=== PATIENT | male | born 1960 | race African-American/Black ===

== ENCOUNTER 2018-08-04 11:00 | Day surgery (SDC) | payer OTHER ==
[2018-08-02 13:01] VITALS: BMI 28.1
[2018-08-04] MEDS ORDERED: LIDOCAINE HCL/PF 2% SDV 5ML VIAL ONE (11:57)
[2018-08-04] MEDS ORDERED: PROPOFOL 20 ML ONE (11:57)
[2018-08-04 15:47] VITALS: TEMP 97.7
[2018-08-04 15:49] VITALS: PULSE 77
[2018-08-04 15:54] VITALS: BP 146/93
--- NOTE | 2018-08-06 12:30 | PATH ---
Surgical Pathology Report Patient Name: ИВАН CONSTANTINO [facility]. Rec. #: [id number] /Age/Gender: 1960 (Age: 58) / M Account: [id number] Location: [facility] Taken: 08/04/2018 Received: 08/04/2018 Reported: 08/06/2018 Physicians: Carmen Garcia M.D. Specimen(s) Received A: SECOND PORTION DUODENUM B: ANTRUM C: BODY D: GE JUNCTION Clinical History History of ulcers Postoperative diagnosis: Gastritis Final Diagnosis A. SECOND PORTION OF DUODENUM, BIOPSY: DUODENAL MUCOSA WITH NO PATHOLOGIC FINDINGS. B. ANTRUM, BIOPSY: MODERATE CHRONIC GASTRITIS WITH INTESTINAL METAPLASIA. IMMUNOSTAIN IS NEGATIVE FOR H. PYLORI ORGANISMS. C.. BODY, BIOPSY: MILD CHRONIC GASTRITIS. IMMUNOSTAIN IS NEGATIVE FOR H. PYLORI ORGANISMS. D. GE JUNCTION, BIOPSY: COLUMNAR (GASTRIC CARDIA-TYPE) MUCOSA SHOWING MODERATE CHRONIC INFLAMMATION. NO INTESTINAL METAPLASIA IS IDENTIFIED. NO ESOPHAGEAL (SQUAMOUS) MUCOSA IS IDENTIFIED. Electronically Signed Karla Dillard M.D. Gross Description A. Received in formalin, labeled "second portion of duodenum" are 2 li, irregular portions of soft tissue averaging 0.3 cm. in greatest dimension. The specimens are submitted in toto in one cassette. B. Received in formalin, labeled "antrum" is a li, irregular portion of soft tissue measuring 0.4 cm. in greatest dimension. The specimen is submitted in toto in one cassette. C. Received in formalin, labeled "body" is a li, irregular portion of soft tissue measuring 0.6 cm. in greatest dimension. The specimen is submitted in toto in one cassette. D. Received in formalin, labeled "GE junction" are 2 li, irregular portions of soft tissue measuring 0.3 and 0.4 cm. in greatest dimension. The specimens are submitted in toto in one cassette. 08/04/201808/04/2018
== END 2018-08-04 13:40 | disposition home or self-care (01) ==
LOC: FASU-ENDO 11:00
PROVIDERS: ATTEND Internal Medicine Gastroenterology
PROC: 0DB68ZX Excision of Stomach, Via Natural or Artificial Opening Endoscopic, Diagnostic (ICD-10-PCS; 2018-08-04)
PROC: 0DB48ZX Excision of Esophagogastric Junction, Via Natural or Artificial Opening Endoscopic, Diagnostic (ICD-10-PCS; 2018-08-04)
PROC: 0DB98ZX Excision of Duodenum, Via Natural or Artificial Opening Endoscopic, Diagnostic (ICD-10-PCS; principal; 2018-08-04 13:06)
DX: K29.50 Unspecified chronic gastritis without bleeding (principal); K31.7 Polyp of stomach and duodenum; K31.89 Other diseases of stomach and duodenum; R10.9 Unspecified abdominal pain; Z87.11 Personal history of peptic ulcer disease
CPT/HCPCS: 88305-TC; 88342-TC

== ENCOUNTER 2019-03-02 11:57 | Day surgery (SDC) | payer OTHER ==
[2019-03-01 16:08] VITALS: BMI 29.0
[2019-03-02] MEDS ORDERED: LIDOCAINE HCL/PF 2% SDV 5ML VIAL ONE (14:44)
[2019-03-02] MEDS ORDERED: PROPOFOL 20 ML ONE (14:44)
[2019-03-02 16:06] VITALS: BP 132/88; PULSE 94; TEMP 98.4
--- NOTE | 2019-03-14 12:44 | PATH ---
Surgical Pathology Report Patient Name: ИВАН CONSTANTINO [facility]. Rec. #: [id number] /Age/Gender: 1960 (Age: 58) / M Account: [id number] Location: [facility] Taken: 03/02/2019 Received: 03/02/2019 Reported: 03/14/2019 Physicians: Carmen Garcia M.D. Specimen(s) Received A: SECOND PORTION DUODENUM AND DUODENAL BULB POLYP B: ANTRUM C: BX GE JUNCTION Clinical History Abdominal pain. Postoperative diagnosis: Gastritis Final Diagnosis A. SECOND PORTION OF DUODENUM AND DUODENAL BULB POLYP, BIOPSY: MILD CHRONIC DUODENITIS. B. GASTRIC ANTRUM, BIOPSY: MODERATE CHRONIC GASTRITIS WITH FOCAL INTESTINAL METAPLASIA. IMMUNOSTAIN IS NEGATIVE FOR H. PYLORI ORGANISMS. C. 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 NEGATIVE FOR DYSPLASIA. Electronically Signed Karla Dillard M.D. Gross Description A. Received in formalin, labeled "second portion duodenum and duodenal bulb polyp" are 2 li, irregular portions of soft tissue each measuring 0.3 cm. in greatest dimension. The specimens are submitted in toto in one cassette. B. received in formalin, labeled, "gastric antrum." Is one li, irregular portion of soft tissue measuring 0.3 cm in greatest dimension. Entirely submitted in one cassette. C. Received in formalin, labeled "GE junction" is a li, irregular portion of soft tissue measuring 0.3 cm. in greatest dimension. The specimen is submitted in toto in one cassette. AE/03/03/2019 ebram/03/03/2019
== END 2019-03-02 15:25 | disposition home or self-care (01) ==
LOC: FASU 11:57
PROVIDERS: ATTEND Internal Medicine Gastroenterology
PROC: 0DB68ZX Excision of Stomach, Via Natural or Artificial Opening Endoscopic, Diagnostic (ICD-10-PCS; 2019-03-02)
PROC: 0DB58ZX Excision of Esophagus, Via Natural or Artificial Opening Endoscopic, Diagnostic (ICD-10-PCS; 2019-03-02)
PROC: 0DB98ZX Excision of Duodenum, Via Natural or Artificial Opening Endoscopic, Diagnostic (ICD-10-PCS; principal; 2019-03-02 14:58)
DX: K29.80 Duodenitis without bleeding (principal); K29.50 Unspecified chronic gastritis without bleeding; R14.0 Abdominal distension (gaseous)
CPT/HCPCS: 88305-TC; 88342-TC

== ENCOUNTER 2021-12-31 08:52 | Day surgery (SDC) | payer OTHER ==
[2021-12-30 13:04] VITALS: BMI 28.8
[2021-12-31 10:55] VITALS: TEMP 97
[2021-12-31 11:10] VITALS: BP 133/87; PULSE 82
== END 2021-12-31 11:11 | disposition home or self-care (01) ==
LOC: FASU-ENDO 08:52
PROVIDERS: ATTEND Internal Medicine Gastroenterology
PROC: 0DB78ZX Excision of Stomach, Pylorus, Via Natural or Artificial Opening Endoscopic, Diagnostic (ICD-10-PCS; 2021-12-31)
PROC: 0DB48ZX Excision of Esophagogastric Junction, Via Natural or Artificial Opening Endoscopic, Diagnostic (ICD-10-PCS; 2021-12-31)
PROC: 0DB98ZX Excision of Duodenum, Via Natural or Artificial Opening Endoscopic, Diagnostic (ICD-10-PCS; principal; 2021-12-31 10:36)
DX: K29.50 Unspecified chronic gastritis without bleeding (principal); K22.89 Other specified disease of esophagus; K31.89 Other diseases of stomach and duodenum; L53.9 Erythematous condition, unspecified
CPT/HCPCS: 82962; 88305-TC; 88342-TC